=== PATIENT | female | born 1990 | race American Indian/Alaskan Native ===

== ENCOUNTER 2017-07-24 11:15 | Day surgery (SDC) | payer OTHER ==
[2017-07-24 12:46] VITALS: O2SAT 100
[2017-07-24] MEDS ORDERED: Lidocaine/Epi 1% 1:100000 20 ML IJ ONE (15:54)
[2017-07-24] MEDS ORDERED: Midazolam 2 MG/2 ML VIAL ONE ×2 (16:17→16:27)
[2017-07-24] MEDS ORDERED: Clindamycin 600mg/50ml NS 600 MG/50 ML BAG IVPB ONE (16:18)
[2017-07-24] MEDS ORDERED: Propofol 10 mg/ml Inj (20 ML) ONE (16:26)
[2017-07-24] MEDS ORDERED: Oxycodone/Acetaminophen 5/325 mg Tab PO PRN (16:51)
[2017-07-24] MEDS ORDERED: HYDROmorphone 0.5 mg/0.5 ml ISec IVP PRN (16:53)
[2017-07-24 17:49] VITALS: TEMP 97.8
[2017-07-24 18:17] VITALS: BP 152/54; PULSE 68; RESP 18
--- NOTE | 2017-07-25 02:03 | OP ---
PROCEDURE DATE: 07/24/2017. PREOPERATIVE DIAGNOSIS: Soft tissue tumor of the forehead. POSTOPERATIVE DIAGNOSIS: Soft tissue tumor of the forehead. PROCEDURE PERFORMED: Excision 3 cm soft tissue tumor of the forehead (wide and deep) with advancement flap closure. SURGEON: Po Kirkpatrick MD. ANESTHESIA: General. ESTIMATED BLOOD LOSS: 10 mL. POSTOPERATIVE CONDITION: Stable. 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 The tumor is 3 cm in size. PROCEDURE: The patient was taken to the operating room. IV sedation was administered, was placed in the supine position. Local anesthesia was administered. A generous elliptical incision was made surrounding the mass. It was dissected free beneath the fascial layer and completely removed. Bleeding was controlled using the Bovie. A full-thickness advancement flaps were raised including fascia and counter incisions were made and a advancement flap closure, totaling 24 cm2 was performed using multiple layers of subcuticular Monocryl and glue. The patient tolerated procedure well, returned to recovery room in stable condition. Po Kirkpatrick MD
== END 2017-07-24 18:00 | disposition home or self-care (01) ==
LOC: C.SDS 11:15
PROVIDERS: ATTEND Surgery
DX: D23.39 Other benign neoplasm of skin of other parts of face (principal); Z88.0 Allergy status to penicillin; M19.90 Unspecified osteoarthritis, unspecified site; I10 Essential (primary) hypertension; F17.210 Nicotine dependence, cigarettes, uncomplicated; F41.9 Anxiety disorder, unspecified; F32.9 Major depressive disorder, single episode, unspecified; J42 Unspecified chronic bronchitis
CPT/HCPCS: 14041; J2250; J2704; J3010